=== PATIENT | female | born 1965 | race Caucasian/White ===

== ENCOUNTER 2018-10-07 12:01 | Outpatient (CLI) | payer BC ==
--- NOTE | 2018-10-07 13:26 | ULT ---
THYROID ULTRASOUND: HISTORY: Thyroid nodule. COMPARISON: 08/03/2017 FINDINGS: Real-time imaging of the right and left lobes of the thyroid gland was performed. The right lobe mckayla sures 1.7 x 1.7 x 4.5. The left lobe measures 1.1 x 1.2 x 3.6 cm. Within the right lobe of the glan d is a complex cystic and solid lesion, measuring 1.1 x 1.2 x 1.9 cm. This is felt to be stable, as compared to the prior examination. IMPRESSION: Stable right lobe thyroid nodule. The smaller cystic nodule seen on the previous examination, adjace nt to this area, is not definitely appreciated. There is a stable appearance to some tiny, 2 to 3 mm left lobe thyroid cysts. POS: [facility]
== END 2018-10-07 12:02 | disposition home or self-care (01) ==
LOC: BICULT 12:01
PROVIDERS: ATTEND Otolaryngology Plastic Surgery within the Head & Neck
DX: E04.2 Nontoxic multinodular goiter (principal)
CPT/HCPCS: 76536